=== PATIENT | female | born 1995 | race Caucasian/White ===

== ENCOUNTER → 2019-03-30 11:28 | Outpatient (CLI) | payer OTHER, SELFPAY | PROVIDERS: Visit Provider Physician Assistant | DX: J02.9 Acute pharyngitis, unspecified (principal) | CPT/HCPCS: 87070 ==

== ENCOUNTER → 2019-08-25 12:05 | Outpatient (CLI) | payer OTHER, SELFPAY ==
[2019-08-25 14:40] LABS: Urine N gonorrhoeae NOT DETECTED
[2019-08-25 14:44] LABS: Urine Chlamydia NOT DETECTED
== END ==
PROVIDERS: Visit Provider Physician Assistant
DX: Z11.3 Encounter for screening for infections with a predominantly sexual mode of transmission (principal); N89.8 Other specified noninflammatory disorders of vagina
CPT/HCPCS: 87210; 87491; 87591

== ENCOUNTER → 2019-09-09 14:22 | Outpatient (CLI) | payer OTHER, SELFPAY ==
--- NOTE | 2019-09-09 14:23 | DI.RAD.S_ITS ---
PROCEDURE: XR ANKLE RT MIN 3V INDICATIONS: pain not improved three weeks after injury despite RICE TECHNIQUE: 3 views of the ankle were acquired. COMPARISON: None. FINDINGS: Bones: No fractures or dislocations. Ankle mortise is normally aligned. No suspicious bony lesions. Soft tissues: No tibiotalar joint effusion. Achilles tendon appears normal. IMPRESSION: No fracture identified. If the patient's pain or other symptoms persist, consider further evaluation with MRI Dictated by: Bright Camargo M.D. on 09/09/2019 at 17:36 Approved by: Bright Camargo M.D. on 09/09/2019 at 17:38
== END ==
PROVIDERS: PCP Family Medicine; Visit Provider Family Medicine
DX: M25.572 Pain in left ankle and joints of left foot (principal)
CPT/HCPCS: 73610

== ENCOUNTER → 2019-10-05 09:41 | Outpatient (CLI) | payer OTHER, SELFPAY ==
--- NOTE | 2019-10-05 09:43 | DI.MRI.S_ITS ---
PROCEDURE: MR ANKLE RT WO CON INDICATIONS: Right ankle pain TECHNIQUE: Noncontrast sagittal T1 spin echo and T2 fast spin echo with fat saturation, axial proton density fast spin echo and T2 fast spin echo with fat saturation, coronal T1 spin echo and T2 fast spin echo with fat saturation through the ankle/hindfoot. COMPARISON: [facility], CR, XR ANKLE RT MIN 3V, 09/09/2019, 14:27. FINDINGS: Image quality: Diagnostic. Bones and joints: No acute fracture or dislocation is identified involving the osseous structures of the midfoot or hindfoot. There is moderate focal marrow edema evident along the medial border of the talus without associated fracture evident. The alignment of the ankle mortise is within normal limits. No osteochondral defects are evident involving the tibial plafond toward the talar dome. No significant degenerative changes of the midfoot or hindfoot joints are present. There is a moderate tibiotalar joint effusion. No osteochondral defects involving the tibial plafond toward the talar dome are evident. Medial structures: The deltoid ligament is intact, but demonstrates mild increased signal. The spring ligament is also noted to be intact, including the plantar components. The tibialis posterior tendon demonstrates mild increased signal along the medial border of the talus with surrounding peritendinous edema. A small amount of fluid is contained within its corresponding tendon sheath. The flexor hallucis longus and flexor digitorum longus tendons are intact and otherwise within normal limits. The posterior tibial nerve to the region of the tarsal tunnel is unremarkable. Lateral structures: Thickening of the anterior and posterior distal tibiofibular ligaments may represent sequela from previous partial thickness injury. No acute or full thickness tear is appreciated. The anterior talofibular ligament is somewhat heterogeneous and also noted to be thickened with slight increased signal present. The calcaneofibular ligament is not well identified on this examination and is at least noted to be edematous suggesting a sprain. However, a full-thickness tear could be present. The posterior talofibular ligament is intact. There is flattening of the peroneus brevis tendon along the posterior margin of the lateral malleolus. Mild increased signal of the vein peroneus longus tendon is present just slightly below the level of the lateral malleolus. A minimal amount of fluid is contained within their corresponding tendon sheaths. Normal fatty signal is seen within the sinus tarsi. Anterior structures: The tibialis anterior, extensor hallucis longus, and extensor digitorum longus tendons appear intact. Posterior and plantar structures: There is mild increased signal identified involving the distal aspect of the Achilles tendon. Medial and lateral bands of the plantar fascia are of normal thickness. IMPRESSION: 1. Marrow edema along the medial border of the talus probably is reactive to a sprain of the deltoid ligament. Direct bone contusion could result in this appearance. No full-thickness deltoid ligament tear. No fractures. 2. Mild tibialis posterior tendinopathy with corresponding minimal tenosynovitis. 3. Scarring of the distal tibiofibular ligaments. 4. Heterogeneity of the anterior talofibular and calcaneofibular ligaments probably is related to previous injury. Superimposed acute sprain may be present. The possibility of a full-thickness tear involving the calcaneofibular ligament cannot be excluded. 5. Mild peroneus brevis and peroneus longus tendinopathy. 6. Tibiotalar joint effusion. 7. Minimal distal Achilles tendinopathy. Dictated by: Michael Ling M.D. on 10/05/2019 at 11:14 Approved by: Michael Ling M.D. on 10/05/2019 at 11:27
== END ==
PROVIDERS: PCP Family Medicine; Visit Provider Family Medicine
DX: M25.571 Pain in right ankle and joints of right foot (principal); M25.471 Effusion, right ankle; M67.971 Unspecified disorder of synovium and tendon, right ankle and foot
CPT/HCPCS: 73721

== ENCOUNTER 2019-12-25 12:58 | Emergency (ER) | payer OTHER, SELFPAY ==
[2019-12-25 13:10] VITALS: BP 119/78; PULSE 63; RESP 14; TEMP 36.9; O2SAT 98; BMI 19.7
--- NOTE | 2019-12-25 13:22 | ED.FEMALEGU ---
HPI - Female Genitourinary <MILTON Steiner - Last Filed: 12/25/19 14:24> General Chief complaint: Urogenital-Female Stated complaint: possible uti Time Seen by Provider: 12/25/19 13:07 Source: patient Mode of arrival: Ambulatory Limitations: no limitations History of Present Illness HPI Narrative: The patient is a 24-year-old female who denies medical history presents with a chief complaint of ?I think I have a UTI.She complains of 1 week of urinary changes, dark-colored urine, frequency, and urgency. She denies any specific dysuria, abnormal vaginal discharge, nausea vomiting diarrhea abdominal pain or flank pain. She denies any fevers. Related Data Previous Rx's Medication Instructions Recorded drospirenone 3 mg-ethinyl 1 tab PO DAILY #28 tab 09/20/19 estradiol 0.02 mg tablet nitrofurantoin monohyd/m-cryst 100 mg PO Q12H 7 Days #14 cap 12/25/19 [Macrobid] Allergies Allergy/AdvReac Type Severity Reaction Status Date / Time No Known Drug Allergies Allergy Verified 12/25/19 13:17 Review of Systems <MILTON Steiner - Last Filed: 12/25/19 14:24> Review of Systems Narrative: GENERAL: Denies chills, fatigue, malaise, fever, sweats. HEENT: Denies sinus pain, ear pain, sore throat, difficulty swallowing, dizziness. RESPIRATORY: Denies dyspnea, cough, wheezing, hemoptysis, sputum. CARDIOVASCULAR: Denies chest pain, palpitations, orthopnea, edema, GASTROINTESTINAL: Denies nausea, vomiting, abdominal pain, diarrhea, constipation, melena. : See HPI MUSCULOSKELETAL: denies weakness, joint pain, or bony pain SKIN: Denies rash, skin lesions, or other NEUROLOGIC: Denies weakness, headache, numbness, change in speech, confusion, seizures, incoordination. PSYCHIATRIC: No concerning psychosocial issues. 12 point review of systems is negative except for those stated above Patient History <MILTON Steiner - Last Filed: 12/25/19 14:24> Surgical History H/O dilation and curettage (Acute) alcohol intake frequency: holidays/special occasions only Substance Use Type: does not use Exam <ALENA Steiner - Last Filed: 12/25/19 14:24> Narrative Exam Narrative: GENERAL: This is a well-nourished, well-developed patient, no acute distress HEAD: Atraumatic. Normocephalic. No temporal or scalp tenderness. EYES: Pupils equal round and reactive. Extraocular motions intact. No scleral icterus. No injection or drainage. ENT: Nose without bleeding, purulent drainage or septal hematoma. Throat without erythema, tonsillar hypertrophy or exudate. Uvula midline. Airway patent. NECK: Trachea midline. No JVD or lymphadenopathy. Supple, nontender, no meningeal signs. CARDIOVASCULAR: Regular rate and rhythm RESPIRATORY: Clear to auscultation. Breath sounds equal bilaterally. No wheezes, rales, or rhonchi. No cough. No increased respiratory effort. No accessory muscle use. GASTROINTESTINAL: Abdomen soft, non-tender, nondistended. No hepato-splenomegaly, or palpable masses. No guarding. EXTREMITIES: No clubbing, cyanosis, or edema. No joint tenderness, effusion, or edema noted. BACK: Nontender without deformity or crepitance. No flank tenderness. NEURO: AOx3. SKIN: No rash or erythema on visible skin Initial Vital Signs Initial Vital Signs: Vital Signs Temperature 98.5 F 12/25/19 13:10 Pulse Rate 63 12/25/19 13:10 Respiratory Rate 14 12/25/19 13:10 Blood Pressure 119/78 12/25/19 13:10 Pulse Oximetry 98 12/25/19 13:10 <Albertina Castorena DO - Last Filed: 12/25/19 15:47> Initial Vital Signs Initial Vital Signs: Vital Signs Temperature 98.5 F 12/25/19 13:10 Pulse Rate 63 12/25/19 13:10 Respiratory Rate 14 12/25/19 13:10 Blood Pressure 119/78 12/25/19 13:10 Pulse Oximetry 98 12/25/19 13:10 Course <ALENA Steiner - Last Filed: 12/25/19 14:24> Orders Ordered: ED Orders 12/25/19 13:10 Urine Culture Stat Urine Microscopic Stat Vital Signs Vital signs: Vital Signs - 8 hr 12/25/19 13:10 Temperature 98.5 F Pulse Rate 63 Respiratory Rate 14 Blood Pressure 119/78 Pulse Oximetry 98 <Albertina Castorena DO - Last Filed: 12/25/19 15:47> Orders Ordered: ED Orders 12/25/19 13:10 Urine Culture Stat Urine Microscopic Stat Vital Signs Vital signs: Vital Signs - 8 hr 12/25/19 13:10 Temperature 98.5 F Pulse Rate 63 Respiratory Rate 14 Blood Pressure 119/78 Pulse Oximetry 98 MDM - Female Genitourinary <MILTON SteinerBC - Last Filed: 12/25/19 14:24> Differential Diagnosis Differential diagnosis: Likely urinary tract infection, bacterial vaginosis, vaginitis and dysmenorrhea Lab Data Labs: Lab Results 12/25/19 Range/Units 13:10 Urine RBC None seen (0-5/HPF) Urine WBC 10-30/hpf H (0-5/HPF) Ur Squamous Epith Cells 1-5 /hpf (0-5/HPF) Amorphous Sediment 2+ Urine Bacteria Few (2-10) H (None) Urine Mucus 1+ H (Negative) Ur Culture Indicated? Specimen cultured Point of Care Testing Test Results Negative Urine Dip Bedside Urine Glucose Negative Bedside Urine Bilirubin - Negative Bedside Urine Ketone - Negative Urine Specific Geraldine 1.025 Bedside Urine Occult Blood - Negative Bedside Urine pH 6.5 Bedside Urine Protein +/- 15 Bedside Urine Urobilinogen - Negative Bedside Urine Nitrite - Negative Bedside Urine Leukocytes ++ 125 Esterase MDM Narrative Medical decision making narrative: The patient is a 24-year-old female who presents with a chief complaint of ?I think I have a UTI with associated dark urine, urgency, frequency,I feel like I have to pee all the. Time and then only go a few drops.She is overall nontoxic appearing, afebrile and appears well in the emergency department. Her urine is concerning for infection, with leukocyte esterase, bacteria and wbc's., urine cultures pending. Encourage PCP follow-up. Discussed at length coming back to emergency department for any acute concerns such as inability keep down fluids, severe flank pain etcetera. Patient has no questions or concerns upon discharge and states understanding of return precautions as well as follow-up care. <Albertina Castorena DO - Last Filed: 12/25/19 15:47> Lab Data Labs: Lab Results 12/25/19 Range/Units 13:10 Urine RBC None seen (0-5/HPF) Urine WBC 10-30/hpf H (0-5/HPF) Ur Squamous Epith Cells 1-5 /hpf (0-5/HPF) Amorphous Sediment 2+ Urine Bacteria Few (2-10) H (None) Urine Mucus 1+ H (Negative) Ur Culture Indicated? Specimen cultured Point of Care Testing Test Results Negative Urine Dip Bedside Urine Glucose Negative Bedside Urine Bilirubin - Negative Bedside Urine Ketone - Negative Urine Specific Geraldine 1.025 Bedside Urine Occult Blood - Negative Bedside Urine pH 6.5 Bedside Urine Protein +/- 15 Bedside Urine Urobilinogen - Negative Bedside Urine Nitrite - Negative Bedside Urine Leukocytes ++ 125 Esterase Discharge Plan Departure Patient Disposition: Home Clinical Impression: Urinary tract infection Qualifiers: Urinary tract infection type: site unspecified Hematuria presence: without hematuria Qualified Code(s): N39.0 - Urinary tract infection, site not specified Discharge Date/Time: 12/25/19 14:02 Instructions: DI for Urinary Tract Infection (UTI) Activity Restrictions/Additional Instructions: Thank you for trusting us with your care today. Your urinalysis is concerning for infection. I sent a prescription of an antibiotic to [facility] in [place]. Please take the whole course. Please push fluids. We have a urine culture pending. If we need to change the antibiotic, we will call you. Please come back to emergency department for any acute concerns such as inability keep down fluids, severe flank pain with fever etcetera Please follow-up with primary care provider in the next few days. Prescriptions: New nitrofurantoin monohyd/m-cryst [Macrobid] 100 mg capsule 100 mg PO Q12H 7 Days Qty: 14 RF: 0 No Action drospirenone-ethinyl estradiol [NINI (28)] 3-0.02 mg tablet 1 tab PO DAILY Qty: 28 RF: 11 Referrals: Thais Aldridge DO [Primary Care Provider] -
[2019-12-25 13:24] LABS: RBC Urine None Seen (0-5/HPF)
[2019-12-25 13:37] LABS: Amorphous Sediment Urine 2+; Bacteria Urine Few (2-10); Culture Indicated Urine Specimen Cultured; Mucus Urine 1+ (Negative); Squamous Epithelial Cell Urine 1-5 /HPF (0-5/HPF); WBC Urine 10-30/HPF (0-5/HPF)
== END 2019-12-25 14:02 | disposition home or self-care (01) ==
PROVIDERS: Emergency Provider Nurse Practitioner Family; PCP Family Medicine
DX: N39.0 Urinary tract infection, site not specified (principal)
CPT/HCPCS: 81003; 81015; 81025; 87086; 99282

== ENCOUNTER → 2020-02-25 17:21 | Outpatient (CLI) | payer OTHER, SELFPAY ==
[2020-02-25 19:22] LABS: Urine N gonorrhoeae NOT DETECTED
[2020-02-25 19:39] LABS: Urine Chlamydia NOT DETECTED
== END ==
PROVIDERS: PCP Family Medicine; Referring Provider Family Medicine; Visit Provider Family Medicine
DX: Z20.2 Contact with and (suspected) exposure to infections with a predominantly sexual mode of transmission (principal)
CPT/HCPCS: 87491; 87591

== ENCOUNTER → 2020-05-24 17:20 | Outpatient (CLI) | payer OTHER, SELFPAY ==
[2020-05-24 18:29] LABS: Appearance Urine UA CLEAR; Bilirubin Urine UA NEGATIVE (NEGATIVE); Color Urine UA YELLOW; Glucose Urine UA NEGATIVE (Negative); Ketones Urine UA NEGATIVE (NEGATIVE); Leukocyte Esterase Urine UA NEGATIVE (NEGATIVE); Nitrite Urine UA NEGATIVE (Negative); Occult Blood Urine UA NEGATIVE (Negative); Protein Urine UA NEGATIVE (Negative); Specific Gravity Urine UA >=1.030 (1.000-1.035); Urobilinogen Urine UA 0.2 E.U./dL (0.2)
== END ==
PROVIDERS: PCP Family Medicine; Referring Provider Family Medicine; Visit Provider Family Medicine
DX: R30.0 Dysuria (principal)
CPT/HCPCS: 81003

== ENCOUNTER → 2020-06-07 16:24 | Outpatient (CLI) | payer OTHER, SELFPAY | PROVIDERS: PCP Family Medicine; Visit Provider Nurse Practitioner Family | DX: N89.8 Other specified noninflammatory disorders of vagina (principal) | CPT/HCPCS: 87070; 87077; 87205; 87210; 87491; 87591 ==

== ENCOUNTER 2020-11-15 19:04 | Emergency (ER) | payer OTHER, MEDICAID, SELFPAY ==
[2020-11-15 19:08] VITALS: BP 146/88; PULSE 88; RESP 16; TEMP 36.6; O2SAT 100
--- NOTE | 2020-11-15 19:11 | ED.GENADULT ---
HPI - General Adult General Chief complaint: Nausea/Vomiting/Diarrhea Stated complaint: stomach pains, missed period Time Seen by Provider: 11/15/20 19:04 Source: patient Mode of arrival: Ambulatory Limitations: no limitations History of Present Illness HPI narrative: 25-year-old female who had an elective approximately 4 years ago not on control and is sexually active here for evaluation of feeling nauseous in the morning, lower abdominal discomfort, sore breast. States the symptoms been going on for least the past week. Her last menstrual cycle was approximately 6 weeks ago. She took some home tests and they were negative. She is not having any urinary symptoms or vaginal bleeding. No fevers. Related Data Previous Rx's Medication Instructions Recorded drospirenone 3 mg-ethinyl 1 tab PO DAILY #28 tab 09/27/20 estradiol 0.02 mg tablet Allergies Allergy/AdvReac Type Severity Reaction Status Date / Time No Known Drug Allergies Allergy Verified 08/18/20 16:06 Review of Systems Constitutional Constitutional: Reports fatigue and Denies fever(s) Cardiovascular Cardiovascular: Denies chest pain and Denies dyspnea Respiratory Respiratory: Denies dyspnea Gastrointestinal Gastrointestinal: Denies change in bowel habits and Reports nausea Genitourinary Genitourinary: Denies dysuria Genitourinary: Denies dysuria Integumentary/Breasts Skin/Breast: Denies rash Neurologic Neurologic: Denies behavioral changes Psychiatric Psychiatric: Denies behavioral changes Endocrine Endocrine: Reports fatigue Hematologic/Lymphatic On Anticoagulants: No Allergic/Immunologic Allergic/Immunologic: Denies urticaria Patient History Medical History Depression Vaginal infection Yeast infection Surgical History H/O dilation and curettage Family History Mother Chronic inflammatory demyelinating polyneuropathy Social History Smoking Status: Never smoker Smoking Status: Never smoker alcohol intake frequency: holidays/special occasions only Substance Use Type: does not use Exam Initial Vital Signs Initial Vital Signs: Vital Signs Temperature 97.8 F 11/15/20 19:08 Pulse Rate 88 11/15/20 19:08 Respiratory Rate 16 11/15/20 19:08 Blood Pressure 146/88 H 03/10/21 19:08 Pulse Oximetry 100 11/15/20 19:08 Const General: cooperative, healthy appearing and comfortable Limitations: mental status not altered HENMT Head: normal to inspection Resp Effort & Inspection: normal respiratory effort Cardio Rate: regular rate GI Inspection: non-distended Palpation: soft Skin Lesions: no lesions Rashes: no rashes Neuro General: patient alert and patient awake Cognition: normal cognition Speech: speech normal Extrem General: normal to inspection and capillary refill normal Psych Appearance: grossly normal and well kempt Course Vital Signs Vital signs: Vital Signs - 8 hr 11/15/20 19:08 Temperature 97.8 F Pulse Rate 88 Respiratory Rate 16 Blood Pressure 146/88 H Pulse Oximetry 100 Medical Decision Making Lab Data Lab results reviewed: Yes I reviewed the patient's lab results. Labs: Point of Care Testing Test Results Negative Urine Dip Bedside Urine Glucose Negative Bedside Urine Bilirubin - Negative Bedside Urine Ketone - Negative Urine Specific Butler 1.030 Bedside Urine Occult Blood - Negative Bedside Urine pH 6 Bedside Urine Protein - Negative Bedside Urine Urobilinogen - Negative Bedside Urine Nitrite - Negative Bedside Urine Leukocytes - Negative Esterase Point of care testing: Point of Care Testing Test Results Negative Urine Dip Bedside Urine Glucose Negative Bedside Urine Bilirubin - Negative Bedside Urine Ketone - Negative Urine Specific Butler 1.030 Bedside Urine Occult Blood - Negative Bedside Urine pH 6 Bedside Urine Protein - Negative Bedside Urine Urobilinogen - Negative Bedside Urine Nitrite - Negative Bedside Urine Leukocytes - Negative Esterase MDM Narrative Medical decision making narrative: Her test is negative. She has had symptoms for approximately 1 week. We did discuss test and how they check for the warm own. Informed her that if she is yet to have a positive test given 1 week of symptoms it is unlikely as she is however she is going to take a daily test at home with her 1st urination of the day over the next couple days to confirm this. Patient has a very benign exam. I do feel we can hold on further workup. She was given return precautions and follow-up instructions. She expressed understanding and agreement. Discharge Plan Departure Patient Disposition: Home Clinical Impression: Abdominal cramping Instructions: Acute Abdominal Pain Activity Restrictions/Additional Instructions: Your test today was negative. I do recommend that you take 1 test today for the next couple days with your 1st urination of the day. Contact your primary provider for a follow-up. Return to the emergency department for any new or worsening symptoms Prescriptions: No Action drospirenone-ethinyl estradiol [NINI (28)] 3-0.02 mg tablet 1 tab PO DAILY Qty: 28 RF: 11 Referrals: Thais Aldridge DO [Primary Care Provider] -
== END 2020-11-15 19:41 | disposition home or self-care (01) ==
PROVIDERS: Emergency Provider Emergency Medicine; PCP Family Medicine
DX: R10.30 Lower abdominal pain, unspecified (principal); R11.0 Nausea
CPT/HCPCS: 81003; 81025; 99281; 99282